=== PATIENT | female | born 1975 | race Caucasian/White ===

== ENCOUNTER 2017-05-02 15:39 | Emergency (ER) | payer MEDICAID ==
[~2017-05-02] VITALS: Ht 175.3 cm; Wt 81.1 kg
[2017-05-02] MEDS ORDERED: SODIUM CHLORIDE 0.9% 1,000 ML IV ONE (15:57)
[2017-05-02] MEDS ORDERED: KETOROLAC 30 MG/1 ML IVPush ONE (16:00)
[2017-05-02] MEDS ORDERED: ONDANSETRON 2MG/ML, 2ML IVPush ONE (16:00)
[2017-05-02] MEDS ORDERED: SODIUM CHLORIDE 0.9% 1,000ML IVBOLUS ONE (16:00)
[2017-05-02 16:36] LABS: ASPARTATE AMINO TRANSFERASE 14 U/L (15-37); BLOOD UREA NITROGEN 18 mg/dL (7-18)
[2017-05-02] MEDS ORDERED: OXYcodone/APAP 5/325MG TABLET ONE (18:23)
[2017-05-02] MEDS ORDERED: ONDANSETRON ODT 4 MG ONE (18:23)
[2017-05-02] MEDS ORDERED: OXYcodone/APAP 5/325MG TABLET PO ONE (18:30)
[2017-05-02] MEDS ORDERED: ONDANSETRON ODT 4 MG PO ONE (18:30)
[2017-05-02 19:45] VITALS: BP 105/53
== END 2017-05-02 20:00 | disposition home or self-care (01) ==
LOC: ED 19:45
DX: R10.32 Left lower quadrant pain (principal); N83.201 Unspecified ovarian cyst, right side; R10.2 Pelvic and perineal pain; J45.909 Unspecified asthma, uncomplicated; J44.9 Chronic obstructive pulmonary disease, unspecified; Z86.73 Personal history of transient ischemic attack (TIA), and cerebral infarction without residual deficits; R51 Headache
CPT/HCPCS: 36415; 76830; 80053; 81001; 84703; 85025; 87086; 93005; 99285; Q0162

== ENCOUNTER 2017-06-02 21:02 | Emergency (ER) | payer MEDICAID ==
[~2017-06-02] VITALS: Ht 172.7 cm; Wt 79.6 kg
[2017-06-02 22:07] VITALS: BP 123/86
== END 2017-06-02 22:16 | disposition left against medical advice (07) ==
LOC: ED 22:12
DX: R51 Headache (principal); Z53.21 Procedure and treatment not carried out due to patient leaving prior to being seen by health care provider

== ENCOUNTER 2017-06-02 23:05 | Observation (INO) | payer MEDICAID ==
[~2017-06-02] VITALS: Ht 172.7 cm; Wt 81.0 kg
[2017-06-03] MEDS ORDERED: SODIUM CHLORIDE 0.9% 1,000ML IVBOLUS ONE
[2017-06-03] MEDS ORDERED: ONDANSETRON 2MG/ML, 2ML IVPush ONE
[2017-06-03 00:23] LABS: BLOOD UREA NITROGEN 18 mg/dL (7-18)
[2017-06-03 00:30] LABS: ASPARTATE AMINO TRANSFERASE 21 U/L (15-37)
[2017-06-03] MEDS ORDERED: ONDANSETRON 2MG/ML, 2ML ONE (00:30)
[2017-06-03 00:31] LABS: ACETAMINOPHEN < 2 mcg/mL (10-30)
[2017-06-03 01:35] LABS: DAU SCREEN DISCLAIMER
[2017-06-03] MEDS ORDERED: SODIUM CHLORIDE 0.9% 1,000 ML IV ONE (02:26)
[2017-06-03] MEDS ORDERED: ONDANSETRON 2MG/ML, 2ML IVPush PRN (02:30)
[2017-06-03] MEDS ORDERED: POTASSIUM CHLORIDE 20 MEQ TAB.ER.PRT PO ONE (03:30)
[2017-06-03 05:53] VITALS: BP 120/81
[2017-06-03 08:03] LABS: ASPARTATE AMINO TRANSFERASE 16 U/L (15-37); BLOOD UREA NITROGEN 16 mg/dL (7-18)
[2017-06-03] MEDS: HEPARIN 5,000 UNITS/ML, 1ML SQ SCH ×2 (09:00→17:00)
[2017-06-03 13:56] VITALS: BP 114/76
[2017-06-03 19:22] LABS: BLOOD UREA NITROGEN 14 mg/dL (7-18)
[2017-06-03 20:48] VITALS: BP 120/68
[2017-06-04] MEDS: HEPARIN 5,000 UNITS/ML, 1ML SQ SCH ×3 (01:00→17:00)
[2017-06-04 01:42] VITALS: BP 117/77
[2017-06-04] MEDS ORDERED: POTASSIUM CHLORIDE 20 MEQ TAB.ER.PRT PO ONE ×2 (02:00→09:00)
[2017-06-04] MEDS ORDERED: ALBUTEROL/IPRATROPIUM 2.5MG/0.5MG, 3 ML IPPB PRN (05:30)
[2017-06-04 05:36] LABS: BLOOD UREA NITROGEN 15 mg/dL (7-18)
[2017-06-04 08:30] VITALS: BP 117/77
[2017-06-04 13:10] VITALS: BP 108/70
[2017-06-04 14:25] VITALS: BP 105/55
[2017-06-04 20:11] VITALS: BP 101/63
[2017-06-05] MEDS: HEPARIN 5,000 UNITS/ML, 1ML SQ SCH ×3 (01:00→17:00)
[2017-06-05 07:03] VITALS: BP 108/69
[2017-06-05] MEDS ORDERED: NICOTINE 14MG/24 HR PATCH.TD24 TD SCH (11:30)
[2017-06-05] MEDS ORDERED: ALBUTEROL SULFATE 2.5 MG/3 ML NPPB PRN (16:00)
[2017-06-05] MEDS ORDERED: ALBU8.5H3 INH (17:19)
== END 2017-06-05 18:30 ==
LOC: ED 23:59 → SUATTDRO 06-03 02:12 → INTOOBSV 06-03 02:26 → EDIP 06-03 02:26 → 3NE 06-03 04:01 → 3E 06-04 14:18
PROVIDERS: ADMIT Family Medicine; ATTEND Family Medicine
DX: T43.591A Poisoning by other antipsychotics and neuroleptics, accidental (unintentional), initial encounter (principal); F15.129 Other stimulant abuse with intoxication, unspecified; E87.6 Hypokalemia; E11.9 Type 2 diabetes mellitus without complications; I10 Essential (primary) hypertension; J44.9 Chronic obstructive pulmonary disease, unspecified; F17.210 Nicotine dependence, cigarettes, uncomplicated; Y92.89 Other specified places as the place of occurrence of the external cause; Z86.73 Personal history of transient ischemic attack (TIA), and cerebral infarction without residual deficits
CPT/HCPCS: 36415; 70450; 80048; 80053; 80178; 80307; 80329; 82962; 83735; 84100; 84703; 85025; 93005; 94640; 96361; 96374; 99285; G0378; J2405; J7030; J7620; G0480

== ENCOUNTER 2017-08-03 15:10 | Emergency (ER) | payer MEDICAID ==
[~2017-08-03] VITALS: Ht 175.3 cm; Wt 77.6 kg
[~2017-08-03 15:10] MED LIST: ALBU8.5H8 INH
[2017-08-03 15:12] VITALS: BP 131/75
[2017-08-03] MEDS ORDERED: CLINDAMYCIN 300 MG CAPSULE ONE (15:50)
[2017-08-03] MEDS ORDERED: CLINDAMYCIN 300 MG CAPSULE PO ONE (16:00)
[2017-08-03 16:13] LABS: HEMATOCRIT 41.5 % (34.6-47.8); HEMOGLOBIN 13.6 g/dL (11.7-16.4)
[2017-08-03 16:22] LABS: ASPARTATE AMINO TRANSFERASE 16 U/L (15-37); BLOOD UREA NITROGEN 14 mg/dL (7-18)
== END 2017-08-03 16:41 | disposition home or self-care (01) ==
LOC: ED 16:19
DX: L03.114 Cellulitis of left upper limb (principal); E11.9 Type 2 diabetes mellitus without complications; F17.210 Nicotine dependence, cigarettes, uncomplicated; J44.9 Chronic obstructive pulmonary disease, unspecified
CPT/HCPCS: 36415; 80053; 85025; 99285

== ENCOUNTER 2018-07-24 20:08 | Emergency (ER) | payer OTHER ==
[~2018-07-24] VITALS: Ht 175.3 cm; Wt 66.2 kg
[~2018-07-24 20:08] MED LIST changes: +IBUP-1623 PO
[2018-07-24 20:14] VITALS: BP 138/88
[2018-07-24] MEDS ORDERED: LIDOCAINE-MPF 2%, 2ML ONE (20:48)
[2018-07-24] MEDS ORDERED: OXYcodone/APAP 5/325MG TABLET ONE ×2 (20:49→22:29)
[2018-07-24] MEDS ORDERED: LIDOCAINE 1%-EPI 1:100K, 30ML ONE ×2 (20:52→20:54)
[2018-07-24] MEDS ORDERED: PROPOFOL 10 MG/ML, 20ML ONE (21:00)
[2018-07-24] MEDS ORDERED: PROPOFOL 10 MG/ML, 20ML IVPush ONE (21:00)
[2018-07-24] MEDS ORDERED: LIDOCAINE 2%, 20ML SQ ONE (21:00)
[2018-07-24] MEDS ORDERED: OXYcodone/APAP 5/325MG TABLET PO ONE ×2 (21:00→22:30)
== END 2018-07-24 23:02 | disposition home or self-care (01) ==
LOC: ED 22:51
DX: L02.411 Cutaneous abscess of right axilla (principal); L73.2 Hidradenitis suppurativa; E11.9 Type 2 diabetes mellitus without complications; Z86.73 Personal history of transient ischemic attack (TIA), and cerebral infarction without residual deficits
CPT/HCPCS: 10061; 99284; J2704; J3490

== ENCOUNTER 2018-08-20 16:15 | Inpatient (IN) | payer OTHER, MEDICAID ==
[~2018-08-20] VITALS: Ht 175.3 cm; Wt 65.5 kg
[2018-08-20 16:55] LABS: MEAN CORPUSCULAR HEMOGLOBIN 30.2 pg (27.0-34.8); MEAN CORPUSCULAR HGB CONC 33.3 g/dL (32.4-35.8); MEAN CORPUSCULAR VOLUME 90.8 fL (80-100); MEAN PLATELET VOLUME 7.6 fL (7.4-10.4); PLATELET COUNT 365 x10^3/uL (130-400); RED CELL DISTRIBUTION WIDTH 13.3 % (9.6-15.2)
[2018-08-20 17:02] LABS: RAPID INFLUENZA A Negative (Negative); RAPID INFLUENZA B Negative (Negative)
[2018-08-20 17:07] LABS: ALANINE AMINOTRANSFERASE 31 U/L (12-78); ALBUMIN 3.4 g/dL (3.4-5.0); ANION GAP 9 mmol/L (5-15); CALCIUM 8.6 mg/dL (8.5-10.1); CHLORIDE 103 mmol/L (98-107); CREATININE 0.78 mg/dL (0.55-1.02)
[2018-08-20 17:11] LABS: ALKALINE PHOSPHATASE 89 U/L (45-117); BILIRUBIN,TOTAL 0.5 mg/dL (0.2-1.0); TOTAL PROTEIN 7.5 g/dL (6.4-8.2); TROPONIN I < 0.015 ng/mL (0.000-0.045)
[2018-08-20 17:15] LABS: MD YES
[2018-08-20 17:16] LABS: BAND#(MANUAL) 0.47 x10^3/uL; BANDS%(MANUAL) 3 % (0-7); EOS#(MANUAL) 0.16 x10^3/uL (0.0-0.4); EOS% (MANUAL) 1 % (1-7); LYMPH#(MANUAL) 2.34 x10^3/uL (1-3.4); LYMPHS% (MANUAL) 15 % (22-44); METAMYELOCYTES# (MANUAL) 0.16 x10^3/uL (0-0); METAMYELOCYTES% (MANUAL) 1 % (0-1); MONOS#(MANUAL) 1.09 x10^3/uL (0.3-2.7); MONOS% (MANUAL) 7 % (2-9); MYELOCYTES# (MANUAL) 0.16 x10^3/uL (0-0); MYELOCYTES% (MANUAL) 1 % (0-0); SEG#(MANUAL) 11.23 x10^3/uL (1.8-6.8); SEGS% (MANUAL) 72 % (42-75)
[2018-08-20 17:17] LABS: <PLATELET ESTIMATE> ADEQUATE; <PLT MORPHOLOGY> NORMAL PLT MORPH; <RBC MORPHOLOGY> NORMAL
[2018-08-20] MEDS ORDERED: KETOROLAC 30 MG/1 ML ONE (17:24)
[2018-08-20 17:28] LABS: MICROSCOPIC AUTO
[2018-08-20 17:29] LABS: CULTURE INDICATED? YES
[2018-08-20] MEDS ORDERED: KETOROLAC 30 MG/1 ML IM ONE (17:30)
[2018-08-20] MEDS ORDERED: CEFTRIAXONE PMX 1GM/50ML 50 ML ONE (17:57)
[2018-08-20] MEDS ORDERED: CEFTRIAXONE 1,000 MG in SODIUM CHLORIDE 0.9% 50 ML IVPB ONE (18:00)
[2018-08-20] MEDS ORDERED: SODIUM CHLORIDE FLUSH 10ML SYR IVF PRN (19:30)
[2018-08-20] MEDS ORDERED: IBUPROFEN 600 MG TABLET PO PRN (20:00)
[2018-08-20] MEDS ORDERED: morphine SULFATE 10 MG/ML, 1ML IVPush PRN (20:00)
[2018-08-20] MEDS ORDERED: DOCUSATE 100 MG CAPSULE PO PRN (20:00)
[2018-08-20] MEDS ORDERED: ONDANSETRON 2MG/ML, 2ML IVPush PRN (20:00)
[2018-08-20] MEDS ORDERED: ONDANSETRON ODT 4 MG PO PRN (20:00)
[2018-08-20] MEDS ORDERED: ENALAPRILAT 1.25 MG/ML, 2ML IVPush PRN (20:00)
[2018-08-20] MEDS ORDERED: POLYETHYLENE GLYCOL 17 GM PACKET PO PRN (20:00)
[2018-08-20 20:20] VITALS: BP 119/74
[2018-08-20] MEDS ORDERED: ALBUTEROL SULFATE 2.5 MG/3 ML NPPB PRN (20:30)
[2018-08-20] MEDS: SODIUM CHLORIDE 0.9% 1,000 ML IV SCH (21:48)
[2018-08-20 22:00] VITALS: BP 119/74
[2018-08-20] MEDS: HEPARIN 5,000 UNITS/ML, 1ML SQ SCH (22:12)
[2018-08-20] MEDS: NICOTINE 14MG/24 HR PATCH.TD24 TD SCH (22:14)
[2018-08-20] MEDS: KETOROLAC 30 MG/1 ML IV PRN (23:22)
[2018-08-21 00:19] VITALS: BP 105/61
[2018-08-21] MEDS: ACETAMINOPHEN 325 MG TABLET PO PRN ×3 (00:57→20:16)
[2018-08-21] MEDS: ZOLPIDEM 5MG TABLET PO PRN ×2 (02:04→22:21)
[2018-08-21 04:35] LABS: BASOPHILS # (AUTO) 0.02 x10^3/uL (0-0.1); BASOPHILS % (AUTO) 0 % (0-1); EOSINOPHILS # (AUTO) 0.01 x10^3/uL (0-0.4); EOSINOPHILS % (AUTO) 0 % (1-7); LYMPHOCYTES # (AUTO) 2.28 x10^3/uL (1-3.4); LYMPHOCYTES % (AUTO) 15 % (22-44); MD NO; MEAN CORPUSCULAR HEMOGLOBIN 30.9 pg (27.0-34.8); MEAN CORPUSCULAR HGB CONC 33.7 g/dL (32.4-35.8); MEAN CORPUSCULAR VOLUME 91.7 fL (80-100); MEAN PLATELET VOLUME 7.6 fL (7.4-10.4); MONOCYTES # (AUTO) 0.98 x10^3/uL (0.2-0.8); MONOCYTES % (AUTO) 6 % (2-9); NEUTROPHILS # (AUTO) 11.88 x10^3/uL (1.8-6.8); NEUTROPHILS % (AUTO) 78 % (42-75); PLATELET COUNT 311 x10^3/uL (130-400); RED BLOOD COUNT 3.67 x10^6/uL (3.82-5.3); RED CELL DISTRIBUTION WIDTH 13.1 % (9.6-15.2)
[2018-08-21 04:41] LABS: ANION GAP 6 mmol/L (5-15); CALCIUM 8.1 mg/dL (8.5-10.1); CHLORIDE 105 mmol/L (98-107); CREATININE 0.84 mg/dL (0.55-1.02)
[2018-08-21] MEDS: SODIUM CHLORIDE 0.9% 1,000 ML IV SCH ×4 (05:39→20:44)
[2018-08-21] MEDS: HEPARIN 5,000 UNITS/ML, 1ML SQ SCH ×3 (05:39→20:43)
[2018-08-21 08:00] VITALS: BP 92/52
[2018-08-21] MEDS ORDERED: SODIUM CHLORIDE 0.9%, 500ML IVBOLUS ONE ×2 (08:30→15:00)
[2018-08-21 08:52] LABS: HEMOGLOBIN A1C 5.7 % (4.2-6.3)
[2018-08-21 10:19] VITALS: BP 95/58
[2018-08-21 13:15] VITALS: BP 95/60
[2018-08-21] MEDS: KETOROLAC 30 MG/1 ML IV PRN ×2 (13:43→20:42)
[2018-08-21] MEDS: ALBUTEROL SULFATE 2.5 MG/3 ML NPPB PRN (15:30)
[2018-08-21 17:59] VITALS: BP 109/61
[2018-08-21] MEDS ORDERED: CEFTRIAXONE 1,000 MG in SODIUM CHLORIDE 0.9% 50 ML IV SCH (18:00)
[2018-08-21] MEDS ORDERED: CEFTRIAXONE PMX 2GM/50ML 50 ML IV SCH (18:00)
[2018-08-21 20:04] VITALS: BP 118/66
[2018-08-21] MEDS: NICOTINE 14MG/24 HR PATCH.TD24 TD SCH (20:43)
[2018-08-22] MEDS: ACETAMINOPHEN 325 MG TABLET PO PRN ×2 (00:17→13:40)
[2018-08-22 03:38] VITALS: BP 103/62
[2018-08-22 04:59] LABS: BASOPHILS # (AUTO) 0.03 x10^3/uL (0-0.1); BASOPHILS % (AUTO) 0 % (0-1); EOSINOPHILS # (AUTO) 0.13 x10^3/uL (0-0.4); EOSINOPHILS % (AUTO) 1 % (1-7); LYMPHOCYTES # (AUTO) 2.91 x10^3/uL (1-3.4); LYMPHOCYTES % (AUTO) 27 % (22-44); MD NO; MEAN CORPUSCULAR HEMOGLOBIN 31.2 pg (27.0-34.8); MEAN CORPUSCULAR HGB CONC 33.8 g/dL (32.4-35.8); MEAN CORPUSCULAR VOLUME 92.3 fL (80-100); MEAN PLATELET VOLUME 8.4 fL (7.4-10.4); MONOCYTES # (AUTO) 1.32 x10^3/uL (0.2-0.8); MONOCYTES % (AUTO) 12 % (2-9); NEUTROPHILS # (AUTO) 6.37 x10^3/uL (1.8-6.8); NEUTROPHILS % (AUTO) 59 % (42-75); PLATELET COUNT 234 x10^3/uL (130-400); RED BLOOD COUNT 3.09 x10^6/uL (3.82-5.3); RED CELL DISTRIBUTION WIDTH 13.4 % (9.6-15.2)
[2018-08-22 05:09] LABS: CHLORIDE 111 mmol/L (98-107)
[2018-08-22 05:17] LABS: ANION GAP 9 mmol/L (5-15); CALCIUM 7.7 mg/dL (8.5-10.1)
[2018-08-22] MEDS: SODIUM CHLORIDE 0.9% 1,000 ML IV SCH (05:19)
[2018-08-22] MEDS: HEPARIN 5,000 UNITS/ML, 1ML SQ SCH ×3 (05:19→21:04)
[2018-08-22] MEDS ORDERED: POTASSIUM CHLORIDE 20 MEQ TAB.ER.PRT PO ONE (06:00)
[2018-08-22 08:35] VITALS: BP 94/57
[2018-08-22 13:40] VITALS: BP 108/63
[2018-08-22] MEDS: KETOROLAC 30 MG/1 ML IV PRN ×2 (14:04→21:31)
[2018-08-22] MEDS: NICOTINE 14MG/24 HR PATCH.TD24 TD SCH (17:38)
[2018-08-22] MEDS ORDERED: CEFTRIAXONE PMX 2GM/50ML 50 ML IV SCH (18:00)
[2018-08-22 19:04] VITALS: BP 107/67
[2018-08-22] MEDS ORDERED: SODIUM CHLORIDE 0.9% 1,000 ML IV SCH (19:57)
[2018-08-22] MEDS: ZOLPIDEM 5MG TABLET PO PRN (21:31)
[2018-08-22] MEDS: ALBUTEROL SULFATE 2.5 MG/3 ML NPPB PRN (22:01)
[2018-08-23 01:45] VITALS: BP 113/72
[2018-08-23] MEDS: KETOROLAC 30 MG/1 ML IV PRN (04:07)
[2018-08-23] MEDS: HEPARIN 5,000 UNITS/ML, 1ML SQ SCH ×2 (04:59→14:00)
[2018-08-23 07:17] VITALS: BP 102/63
[2018-08-23] MEDS: CEFUROXIME 500 MG TABLET PO SCH ×2 (08:16→08:17)
[2018-08-23] MEDS ORDERED: CEFU500T50 PO (12:32)
== END 2018-08-23 15:07 | disposition home or self-care (01) | DRG 872 ==
LOC: ED 17:16 → EDIP 19:39 → 3NE 20:15 → DCLOUNGE 08-23 14:56
PROVIDERS: ADMIT Internal Medicine; ATTEND Internal Medicine
DX: A41.9 Sepsis, unspecified organism (principal); F15.20 Other stimulant dependence, uncomplicated; N10 Acute pyelonephritis; D64.9 Anemia, unspecified; E11.9 Type 2 diabetes mellitus without complications; E87.6 Hypokalemia; F17.210 Nicotine dependence, cigarettes, uncomplicated; G43.909 Migraine, unspecified, not intractable, without status migrainosus; J44.9 Chronic obstructive pulmonary disease, unspecified; Z59.0 Homelessness; Z86.73 Personal history of transient ischemic attack (TIA), and cerebral infarction without residual deficits; Z82.5 Family history of asthma and other chronic lower respiratory diseases; Z82.49 Family history of ischemic heart disease and other diseases of the circulatory system; Z88.5 Allergy status to narcotic agent
CPT/HCPCS: 36415; 87400; 87806; 99285; J7613; 71045; 80048; 80053; 81001; 83036; 83605; 84484; 84703; 85025; 86803; 87040; 87077; 87086; 87186; 93005; 94640; 96365; 96372; G0378; J0696; J1644; J1885; G0475; J7030; J7040

== ENCOUNTER 2018-08-28 07:23 | Emergency (ER) | payer MEDICAID, OTHER ==
[~2018-08-28] VITALS: Ht 175.3 cm; Wt 62.0 kg
[~2018-08-28 07:23] MED LIST changes: +CEFU500T50 PO
[2018-08-28] MEDS ORDERED: SODIUM CHLORIDE FLUSH 10ML SYR IVF ONE (08:00)
[2018-08-28 08:08] LABS: ALBUMIN 3.5 g/dL (3.4-5.0); ANION GAP 2 mmol/L (5-15); CALCIUM 8.7 mg/dL (8.5-10.1); CHLORIDE 111 mmol/L (98-107); CREATININE 0.67 mg/dL (0.55-1.02)
[2018-08-28 08:10] LABS: BASOPHILS # (AUTO) 0.03 x10^3/uL (0-0.1); BASOPHILS % (AUTO) 0 % (0-1); EOSINOPHILS # (AUTO) 0.07 x10^3/uL (0-0.4); EOSINOPHILS % (AUTO) 1 % (1-7); LYMPHOCYTES # (AUTO) 3.27 x10^3/uL (1-3.4); LYMPHOCYTES % (AUTO) 33 % (22-44); MD NO; MEAN CORPUSCULAR HEMOGLOBIN 30.6 pg (27.0-34.8); MEAN CORPUSCULAR HGB CONC 33.8 g/dL (32.4-35.8); MEAN CORPUSCULAR VOLUME 90.4 fL (80-100); MEAN PLATELET VOLUME 6.9 fL (7.4-10.4); MONOCYTES # (AUTO) 0.53 x10^3/uL (0.2-0.8); MONOCYTES % (AUTO) 5 % (2-9); NEUTROPHILS # (AUTO) 6.03 x10^3/uL (1.8-6.8); NEUTROPHILS % (AUTO) 61 % (42-75); PLATELET COUNT 665 x10^3/uL (130-400); RED BLOOD COUNT 3.85 x10^6/uL (3.82-5.3); RED CELL DISTRIBUTION WIDTH 13.2 % (9.6-15.2)
[2018-08-28 08:14] LABS: MICROSCOPIC AUTO
[2018-08-28 08:17] LABS: CULTURE INDICATED? NO
[2018-08-28] MEDS ORDERED: OMNIPAQUE 350 MG/ML, 100ML BOTTLE ONE (08:40)
[2018-08-28 10:31] VITALS: BP 140/81
== END 2018-08-28 10:33 | disposition home or self-care (01) ==
LOC: ED 08:30
DX: S20.212A Contusion of left front wall of thorax, initial encounter (principal); E11.9 Type 2 diabetes mellitus without complications; J44.9 Chronic obstructive pulmonary disease, unspecified; Z86.73 Personal history of transient ischemic attack (TIA), and cerebral infarction without residual deficits; Z88.6 Allergy status to analgesic agent; Y04.0XXA Assault by unarmed brawl or fight, initial encounter; Y93.89 Activity, other specified; Y92.830 Public park as the place of occurrence of the external cause; Y99.8 Other external cause status
CPT/HCPCS: 36415; 71045; 74177; 80048; 81001; 82040; 85025; 99285; Q9967

== ENCOUNTER 2018-11-12 07:57 | Emergency (ER) | payer MEDICAID ==
[~2018-11-12] VITALS: Ht 175.3 cm; Wt 69.3 kg
--- NOTE | 2018-11-12 08:18 | NUR ---
FIRST CONTACT WITH PT. PT SITTING ON [facility] IN [facility]. PT STATES, "I HAVE COPD AND I AM HAVING A FLARE UP. IT'S BEEN FOR A COUPLE OF DAYS. I HAVE A HEADACHE AND AN EARACHE IN MY RIGHT EAR. MY TONGUE HAS SORES ON THE SIDE OF IT. I THINK IT IS FROM BEING DEHYDRATED. I HAVE AN INHALER AT HOME." NADN. ALL SAFETY MEASURES IN PLACE.
--- NOTE | 2018-11-12 08:26 | NUR ---
PT TRANSPORTED ON [facility] TO [facility]
[2018-11-12] MEDS ORDERED: DEXAMETHASONE 4 MG TABLET PO ONE (08:30)
[2018-11-12] MEDS ORDERED: DEXAMETHASONE 4 MG TABLET ONE (08:32)
[2018-11-12] MEDS ORDERED: ALBUTEROL/IPRATROPIUM 2.5MG/0.5MG, 3 ML ONE ×2 (08:35→10:09)
[2018-11-12] MEDS: ALBUTEROL/IPRATROPIUM 2.5MG/0.5MG, 3 ML NPPB SCH ×2 (08:46→10:12)
[2018-11-12 09:08] LABS: HCG UR SG 1.024 (1.003-1.030)
[2018-11-12] MEDS ORDERED: ACETAMINOPHEN 325 MG SUPP ONE (09:19)
[2018-11-12] MEDS ORDERED: ACETAMINOPHEN 325 MG TABLET ONE (09:20)
[2018-11-12 09:26] VITALS: BP 123/77
--- NOTE | 2018-11-12 09:27 | NUR ---
PROVIDED PT MEDICATION PER EMAR. NADN. NO OTHER NEEDS REQUESTED AT THIS TIME.
[2018-11-12] MEDS ORDERED: ACETAMINOPHEN 325 MG TABLET PO ONE (09:30)
--- NOTE | 2018-11-12 10:25 | NUR ---
Pt provided w/ spacer, d/c papers & RX. Verb. understanding of d/c instructions. Amb w/ steady gait to front maker lockstitch.
== END 2018-11-12 10:38 | disposition home or self-care (01) ==
LOC: ED 09:15
DX: J44.1 Chronic obstructive pulmonary disease with (acute) exacerbation (principal)
CPT/HCPCS: 71046; 81025; 94640; 94664; 99284; J7620

== ENCOUNTER 2018-12-24 11:59 | Emergency (ER) | payer MEDICAID ==
[~2018-12-24] VITALS: Ht 175.3 cm; Wt 72.0 kg
--- NOTE | 2018-12-24 12:18 | NUR ---
PT AMBULATORY TO RME FROM TRIAGE WITH STEADY GAIT. REBEKAH QUIROZ AT BEDSIDE FOR EVAULATION. CALL LIGHT IN REACH. FALL PRECAUTIONS IN PLACE. NAD NOTED. RESP REGULAR AND UNLABORED. A&OX4.
[2018-12-24] MEDS ORDERED: LIDOCAINE-MPF 1%, 5ML ONE (12:26)
[2018-12-24] MEDS ORDERED: LIDOCAINE 1%, 10ML INFIL ONE (12:30)
--- NOTE | 2018-12-24 12:44 | NUR ---
DR. ARMIJO AT BEDSIDE FOR EVALUATION WITH REBEKAH QUIROZ
[2018-12-24] MEDS ORDERED: LORazepam 1MG TABLET ONE (12:50)
[2018-12-24] MEDS ORDERED: BENZOCAINE 20% SPRAY 0.5ML ONE (12:50)
[2018-12-24] MEDS ORDERED: LORazepam 1MG TABLET PO ONE (13:00)
[2018-12-24] MEDS ORDERED: CETACAINE 50ML TP ONE (13:00)
[2018-12-24 13:21] VITALS: BP 141/85
[2018-12-24] MEDS ORDERED: BENZOCAINE AEROSOL SPRAY 20%, 60ML ONE (13:24)
== END 2018-12-24 13:43 | disposition home or self-care (01) ==
LOC: ED 12:41
DX: L02.411 Cutaneous abscess of right axilla (principal); J44.9 Chronic obstructive pulmonary disease, unspecified; E11.9 Type 2 diabetes mellitus without complications; Z86.73 Personal history of transient ischemic attack (TIA), and cerebral infarction without residual deficits
CPT/HCPCS: 10061; 99284; J3490

== ENCOUNTER 2020-06-11 21:14 | Emergency (ER) | payer MEDICAID ==
[~2020-06-11] VITALS: Ht 175.3 cm; Wt 74.2 kg
--- NOTE | 2020-06-11 21:48 | NUR ---
DISPLAY FABRICATOR: EKG DONE IN TRIAGE.
[2020-06-11] MEDS ORDERED: SODIUM CHLORIDE FLUSH 10ML SYR IVF ONE (22:00)
[2020-06-11] MEDS ORDERED: SODIUM CHLORIDE 0.9% 1,000ML IVBOLUS ONE (22:00)
[2020-06-11 22:34] LABS: BASOPHILS # (AUTO) 0.04 x10^3/uL (0-0.1); BASOPHILS % (AUTO) 1 % (0-1); EOSINOPHILS # (AUTO) 0.25 x10^3/uL (0-0.4); EOSINOPHILS % (AUTO) 3 % (1-7); LYMPHOCYTES # (AUTO) 4.31 x10^3/uL (1-3.4); LYMPHOCYTES % (AUTO) 46 % (22-44); MD NO; MEAN CORPUSCULAR HGB CONC 33.1 g/dL (32.4-35.8); MEAN PLATELET VOLUME 7.8 fL (7.4-10.4); MONOCYTES % (AUTO) 6 % (2-9); NEUTROPHILS # (AUTO) 4.12 x10^3/uL (1.8-6.8); NEUTROPHILS % (AUTO) 44 % (42-75); PLATELET COUNT 472 x10^3/uL (130-400); RED BLOOD COUNT 4.33 x10^6/uL (3.82-5.3)
[2020-06-11 22:45] LABS: ALBUMIN 3.4 g/dL (3.4-5.0); ANION GAP 8 mmol/L (5-15); CALCIUM 8.1 mg/dL (8.5-10.1); CHLORIDE 112 mmol/L (98-107)
[2020-06-11 22:50] LABS: ALANINE AMINOTRANSFERASE 17 U/L (12-78); ALKALINE PHOSPHATASE 67 U/L (45-117); BILIRUBIN,TOTAL 0.5 mg/dL (0.2-1.0); CREATININE 0.78 mg/dL (0.55-1.02); TOTAL PROTEIN 7.2 g/dL (6.4-8.2); TROPONIN I < 0.015 ng/mL (0.000-0.045)
--- NOTE | 2020-06-11 23:08 | NUR ---
MAGISTRATE JUDGE: PT. TO ROOM FROM LOBBY AT THIS TIME.
[2020-06-11 23:37] VITALS: BP 115/70
--- NOTE | 2020-06-11 23:38 | NUR ---
THIS IS A 44 YO FEMALE COMING IN FOR "I'VE BEEN SICK WITH WHAT I THINK IS BRONCHITIS SINCE ABOUT A WEEK AGO, BUT I STARTED FEELING BETTER. THEN TODAY I STARTED GETTING A FEVER AND DIZZINESSS, LIGHTHEADEDNESS, I'M REALLY TIRED, AND MY VISION IS BLURRY." CURRENTLY C/O DIZZINESS, STATES SOB IS R/T COPD. FREQUENTLY GETS BRONCHITIS. RICHIE SPENCER TO ROOM, COMPLETED COVID SWAB. VERBAL ORDERS FOR OKAY TO NOT START PIV DUE TO BEING HARD STICK AND TOLERATING PO FLUIDS. MONITORING IN PLACE, VSSMORGANN. CALL LIGHT IN REACH
== END 2020-06-12 00:25 | disposition home or self-care (01) ==
LOC: ED 23:49
DX: Z03.818 Encounter for observation for suspected exposure to other biological agents ruled out (principal); R06.02 Shortness of breath; R42 Dizziness and giddiness; R05 Cough; B34.9 Viral infection, unspecified; R00.0 Tachycardia, unspecified; E11.9 Type 2 diabetes mellitus without complications; Z86.73 Personal history of transient ischemic attack (TIA), and cerebral infarction without residual deficits
CPT/HCPCS: 36415; 71046; 80053; 84484; 85025; 87635; 93005; 99285

== ENCOUNTER 2020-08-31 23:44 | Emergency (ER) | payer MEDICAID ==
[~2020-08-31] VITALS: Ht 175.3 cm; Wt 75.0 kg
[2020-09-01] MEDS ORDERED: HYDR-826 PO (01:27)
--- NOTE | 2020-09-01 02:25 | NUR ---
PT REMAINS ON CARDIAC, BP AND O2 MONITORS. VSS, RESPIRATIONS EVEN AND UNLABORED, LIGHTS OFF TO PROMOTE REST, ALL NEEDS MET AT THIS TIME. DUNIA.
[2020-09-01 02:26] VITALS: BP 104/64
== END 2020-09-01 03:06 | disposition home or self-care (01) ==
LOC: ED 09-01 01:46
DX: R05 Cough (principal); R00.0 Tachycardia, unspecified; R50.9 Fever, unspecified; R07.89 Other chest pain; E11.9 Type 2 diabetes mellitus without complications; F17.210 Nicotine dependence, cigarettes, uncomplicated; J44.9 Chronic obstructive pulmonary disease, unspecified; Z86.73 Personal history of transient ischemic attack (TIA), and cerebral infarction without residual deficits
CPT/HCPCS: 71045; 93005; 99283; 99406

== ENCOUNTER 2020-12-05 22:12 | Emergency (ER) | payer MEDICAID ==
[~2020-12-05] VITALS: Ht 175.3 cm; Wt 81.7 kg
[~2020-12-05 22:12] MED LIST changes: +HYDR-826 PO
--- NOTE | 2020-12-05 22:37 | NUR ---
XR at bedside
[2020-12-05 23:23] LABS: BASOPHILS % (AUTO) 1 % (0-1); EOSINOPHILS % (AUTO) 1 % (1-7); LYMPHOCYTES % (AUTO) 36 % (22-44); MEAN CORPUSCULAR HEMOGLOBIN 32.3 pg (27.0-34.8); MEAN CORPUSCULAR HGB CONC 34.4 g/dL (32.4-35.8); MEAN PLATELET VOLUME 7.6 fL (7.4-10.4); MONOCYTES % (AUTO) 7 % (2-9); NEUTROPHILS % (AUTO) 56 % (42-75); PLATELET COUNT 386 x10^3/uL (130-400)
[2020-12-05 23:26] LABS: MD NO
[2020-12-05 23:31] LABS: ALANINE AMINOTRANSFERASE 28 U/L (12-78); ALBUMIN 3.7 g/dL (3.4-5.0); ANION GAP 6 mmol/L (5-15); CALCIUM 8.5 mg/dL (8.5-10.1); CHLORIDE 103 mmol/L (98-107); CREATININE 0.93 mg/dL (0.55-1.02)
[2020-12-05 23:35] LABS: ALKALINE PHOSPHATASE 70 U/L (45-117); BILIRUBIN,TOTAL 0.4 mg/dL (0.2-1.0); TOTAL PROTEIN 7.4 g/dL (6.4-8.2); TROPONIN I < 0.015 ng/mL (0.000-0.045)
[2020-12-05 23:57] VITALS: BP 128/77
--- NOTE | 2020-12-06 00:02 | NUR ---
Provider at bedside.
== END 2020-12-06 00:30 | disposition home or self-care (01) ==
LOC: ED 12-06 00:15
DX: R07.89 Other chest pain (principal); R42 Dizziness and giddiness; R10.13 Epigastric pain; R00.0 Tachycardia, unspecified; J44.9 Chronic obstructive pulmonary disease, unspecified
CPT/HCPCS: 36415; 71045; 80053; 83690; 84484; 84703; 85025; 85379; 93005; 99285

== ENCOUNTER 2021-03-01 18:37 | Emergency (ER) | payer MEDICAID ==
[~2021-03-01] VITALS: Ht 175.3 cm; Wt 80.0 kg
--- NOTE | 2021-03-01 18:58 | NUR ---
PT BIB BOYFRIEND VIA POV. PER PT "I'VE BEEN HAVING A OHARA, SORE THROAT, AND I'VE BEEN FATIGUED X 3 DAYS". PT RESTING IN [facility], MONITORING IN PLACE, DUNIA AT THIS TIME, PER PT NO NEEDS AT THIS TIME, SANDEE.
[2021-03-01] MEDS ORDERED: KETOROLAC 30 MG/1 ML IM ONE (19:00)
[2021-03-01] MEDS ORDERED: KETOROLAC 30 MG/1 ML ONE (19:06)
--- NOTE | 2021-03-01 19:10 | NUR ---
LAB AND XR AT BEDSIDE AT THIS TIME.
[2021-03-01 19:33] LABS: ALBUMIN 3.6 g/dL (3.4-5.0); ANION GAP 8 mmol/L (5-15); BASOPHILS % (AUTO) 1 % (0-1); CALCIUM 8.3 mg/dL (8.5-10.1); CHLORIDE 106 mmol/L (98-107); CREATININE 0.83 mg/dL (0.55-1.02); EOSINOPHILS % (AUTO) 2 % (1-7); LYMPHOCYTES % (AUTO) 48 % (22-44); MEAN CORPUSCULAR HEMOGLOBIN 31.9 pg (27.0-34.8); MEAN CORPUSCULAR HGB CONC 33.8 g/dL (32.4-35.8); MEAN PLATELET VOLUME 7.5 fL (7.4-10.4); MONOCYTES % (AUTO) 7 % (2-9); NEUTROPHILS % (AUTO) 43 % (42-75); PLATELET COUNT 350 x10^3/uL (130-400); RED BLOOD COUNT 4.32 x10^6/uL (3.82-5.3); RED CELL DISTRIBUTION WIDTH 12.9 % (9.6-15.2)
[2021-03-01 19:58] LABS: MD SCAN
--- NOTE | 2021-03-01 20:01 | NUR ---
PT RESTING IN [facility], MONITORING IN PLACE, WARM BLANKET PROVIDED, NADN AT THIS TIME, SANDEE.
[2021-03-01 20:04] VITALS: BP 161/88
== END 2021-03-01 21:11 | disposition home or self-care (01) ==
LOC: ED 19:20
DX: J06.9 Acute upper respiratory infection, unspecified (principal); J44.9 Chronic obstructive pulmonary disease, unspecified; Z20.822 Contact with and (suspected) exposure to COVID-19; Z86.73 Personal history of transient ischemic attack (TIA), and cerebral infarction without residual deficits; Z88.5 Allergy status to narcotic agent
CPT/HCPCS: 36415; 71045; 80048; 82040; 85025; 87081; 87880; 96372; 99284; J1885; U0003

== ENCOUNTER 2021-06-28 03:54 | Emergency (ER) | payer MEDICAID ==
[~2021-06-28] VITALS: Ht 175.3 cm; Wt 78.6 kg
[2021-06-28 04:03] VITALS: BP 108/69
--- NOTE | 2021-06-28 06:14 | NUR ---
NIL X 1
--- NOTE | 2021-06-28 06:23 | NUR ---
NIL X 2
--- NOTE | 2021-06-28 06:34 | NUR ---
NIL X 3
== END 2021-06-28 06:36 | disposition left against medical advice (07) ==
LOC: ED 06:20
DX: R51.9 Headache, unspecified (principal); R42 Dizziness and giddiness; R06.02 Shortness of breath; Z53.21 Procedure and treatment not carried out due to patient leaving prior to being seen by health care provider
CPT/HCPCS: 93005